=== PATIENT | female | born 1985 | race Caucasian/White ===

== ENCOUNTER 2018-08-23 18:03 | Outpatient (CLI) | payer MEDICAID, OTHER ==
[~2018-08-23] VITALS: Ht 167.6 cm; Wt 106.2 kg
[~2018-08-23 18:03] MED LIST: AZIT-12 PO; CYCL5TAB PO; FLAG500T PO; FLON1SPR NARES; GUAI100L6 PO; MACR100C43 PO; NAPR-837 PO; PRENTAB45 PO; SUDAFED; TRAZ50TA; ZOLO50TA
[2018-08-23] MEDS ORDERED: PRENTAB9 PO (18:29)
--- NOTE | 2018-08-23 20:46 | NUR ---
L&D Triage Note: S: 33yo at 32wks who present for labor check. Report contraction 3 ctx, but has subsided since traveling to hospital. +AFM, no vaginal bleeding or LOF. O: vss, AF cat 1 tracing, FHR 130s, moderate variability and spontaneous acceleration. Rare contractions gen: well appearing abd: gravid,nttp cx: 1/long/-3 FFN neg A/P: 33yo at 32wks, not in PTL Reassuring status -home with PTL precautions -FKCs -f/u at OB appt 08/25 Alberta Wood MD
== END 2018-08-23 20:50 | disposition home or self-care (01) ==
LOC: M LDO 18:03
PROVIDERS: ATTEND Obstetrics & Gynecology
DX: O47.03 False labor before 37 completed weeks of gestation, third trimester (principal); Z3A.32 32 weeks gestation of pregnancy

== ENCOUNTER 2018-09-14 22:11 | Outpatient (CLI) | payer MEDICAID ==
[~2018-09-14] VITALS: Ht 165.1 cm; Wt 106.5 kg
[2018-09-14 22:28] VITALS: BP 139/84
[2018-09-14 23:17] LABS: HEMATOCRIT 29.4 % (36.0-47.0); HEMOGLOBIN 10.5 g/dl (12.0-15.5); MEAN CORPUSCULAR HEMOGLOBIN 31.1 pg (27.0-33.0); MEAN CORPUSCULAR HGB CONC 35.7 g/dl (32.0-36.5); PLATELET COUNT, AUTOMATED 193 10^3/uL (150-450); RED BLOOD COUNT 3.38 10^6/uL (4.00-5.40); WHITE BLOOD COUNT 15.2 10^3/uL (4.0-10.0)
[2018-09-14 23:30] LABS: ALBUMIN 2.6 GM/DL (3.2-5.2); BILIRUBIN,DIRECT 0.1 MG/DL (0.0-0.2); BILIRUBIN,TOTAL 0.5 MG/DL (0.2-1.0); TOTAL PROTEIN 5.9 GM/DL (6.4-8.2)
[2018-09-14] MEDS ORDERED: PROMETHAZINE INJ 25 MG/ML VIAL (J2550) IV ONE (23:45)
[2018-09-14] MEDS ORDERED: BUTORPHANOL 2 MG/ML INJ (J0595) IV ONE (23:45)
[2018-09-14] MEDS ORDERED: FAMOTIDINE 20 MG TAB PO ONE (23:45)
[2018-09-15 00:04] VITALS: BP 110/77
[2018-09-15 01:29] VITALS: BP 121/59
[2018-09-15 02:41] VITALS: BP 128/75
[2018-09-15 03:55] VITALS: BP 109/57
--- NOTE | 2018-09-15 05:33 | IPN ---
DATE OF VISIT: 09/14/2018 Joselyn is a 33-year-old 4, para 1-1-1-2, 35-6/7 weeks at this moment arrival was at 35-5/7 weeks. She arrived to labor and delivery with a complaint of right upper quadrant pain that radiated down the right side of her abdomen, crossed her lower stomach and wrapped around her back. This pain started at approximately 2100. She does deny vaginal bleeding and leakage of fluid. The fetus has been active. The pain was reported to be a constant pain, unrelieved by position change. She does report that she ate chicken Jose for dinner at approximately 2000. Upon arrival to labor and delivery noted her care. HISTORY: Her care was initiated at a woman's perspective at 35 weeks as a transfer of care from [place] obstetric provider due to discharge from service of her spouse. Her care was complicated by history of delivery at 32 weeks. She was taking Imelda up until week 24 when she lost her insurance due to discharge from the [employer]. She also has a history of a hemorrhage. The plan is to have an active management of her third stage. OBSTETRIC HISTORY: 1. May 2006, 42 weeks gestation, 8 pounds female vaginal delivery uncomplicated. 2. June 2007, 32 weeks gestation, 3 pounds 6 ounces male complicated by hemorrhage vaginal delivery. 3. November 2013, an elective termination of . OBSTETRIC LABS: B+, antibody screen negative, rubella immune, VDRL nonreactive. Hep B surface antigen negative gonorrhea and chlamydia negative. Gestational diabetic screening is abnormal at 148. She has failed to do the three hour glucose tolerance test as she has been ordered by Dixon Ortiz, as well as a woman's perspective. GBS was just obtained today in the office for routine visit. PAST MEDICAL HISTORY: Abnormal Pap smear. PAST SURGICAL HISTORY: 1. Colon biopsy. 2. Breast augmentation. 3. Surgical dilatation and curettage (D and C). 4. History of blood transfusion. 5. History of anxiety. 6. Childhood varicella. FAMILY HISTORY: Diabetes, hypertension, kidney disease, bipolar and depression, skin cancer, Alzheimer's disease. SOCIAL HISTORY: The patient is single however the father of the baby is involved and at bedside. She is a nonsmoker. Denies alcohol and drug use. Denies history of any sexually transmitted infections. Denies history of abuse physical, sexual and emotional. ALLERGIES: No known drug allergies. CURRENT MEDICATIONS: - vitamins. PHYSICAL EXAMINATION: Upon arrival to labor and delivery she does appear somewhat uncomfortable. VITAL SIGNS: Temperature 98.2, pulse 82, respirations 20, blood pressure was 139/84. Upon arrival heart rate is 140 with moderate variability, positive accelerations, no decelerations. There is no pattern of regular contractions. STERILE VAGINAL EXAM: 2 cm dilated, 50% effaced, ballottable posterior and soft. No bloody show with the exam. LABORATORY DATA: Labs were ordered. Her white count is elevated at 15.2, hemoglobin 10.5, hematocrit 29.4. Her AST is normal at 15, ALT 11, alk phosphatase 98, amylase is 50 and lipase 217. She did undergo a gallbladder ultrasound that was nonspecific. It demonstrated a gallbladder that was partially contracted without shadowing gallstones, several mildly complex right renal cysts large in the mid pole of the right kidney. Suboptimal evaluation of the pancreas due to extensive bowel gas. No focal abnormality is seen in the head or body of the pancreas. ASSESSMENT: 1. Intrauterine at 35-6/7 weeks gestation at this time. 2. heart rate is category I, not in active labor. Likely right upper quadrant pain perhaps caused by gallstones or by the large amount of bowel gas noted on ultrasound. PLAN: The patient is being medicated for her abdominal discomfort and therapeutic rest. We will reassess after she has had some rest. Will continue to observe at this time.
[2018-09-15 06:18] VITALS: BP 105/67
--- NOTE | 2018-09-15 08:21 | REP ---
RIGHT UPPER QUADRANT ULTRASOUND: Real-time sonographic evaluation of right upper quadrant performed. Gallbladder is somewhat contracted, but no stones are seen. There is no evidence of significant gallbladder wall thickening. There is no pericholecystic fluid. There is no intrahepatic or extrahepatic biliary dilatation, common bile duct measuring 4 mm. Liver and pancreas demonstrate no gross mass. Right kidney demonstrates normal size 12.4 cm in length. There is no hydronephrosis. Multiple cysts are seen of the right kidney, largest in the mid aspect 1.4 cm in maximum diameter. This renal cyst is mildly complex with peripheral wall thickening. IMPRESSION: No gallstones, gallbladder wall thickening, pericholecystic fluid, or biliary dilatation. Right renal cysts, largest is 1.4 cm, demonstrating mildly complex characteristics with wall thickening. Followup recommended. Preliminary report provided by [facility] at the time of the exam. Electronically Signed by Demarcus Zavaleta MD 09/19/2018 01:40 P
== END 2018-09-15 08:12 | disposition home or self-care (01) ==
LOC: M LDO 22:11
PROVIDERS: ATTEND Advanced Practice Midwife
DX: O26.893 Other specified pregnancy related conditions, third trimester (principal); R10.11 Right upper quadrant pain; R10.30 Lower abdominal pain, unspecified; Z3A.35 35 weeks gestation of pregnancy
CPT/HCPCS: 36415; 59025; 76705; 80076; 82150; 83690; 85027; J0595

== ENCOUNTER → 2018-09-14 | Outpatient (CLI) | payer MEDICAID ==
[~2018-09-14] MED LIST changes: +PRENTAB9 PO
== END ==
LOC: M SMT 10:23
PROVIDERS: ATTEND Advanced Practice Midwife
DX: Z34.83 Encounter for supervision of other normal pregnancy, third trimester (principal); Z3A.00 Weeks of gestation of pregnancy not specified

== ENCOUNTER → 2018-09-14 | Outpatient (REF) | payer MEDICAID | LOC: M LAB REF 13:10 | PROVIDERS: ATTEND Advanced Practice Midwife | DX: Z34.83 Encounter for supervision of other normal pregnancy, third trimester (principal) ==

== ENCOUNTER → 2018-09-19 | Outpatient (CLI) | payer OTHER | LOC: M LAB 07:53 | PROVIDERS: ATTEND Advanced Practice Midwife | DX: Z34.83 Encounter for supervision of other normal pregnancy, third trimester (principal); Z3A.00 Weeks of gestation of pregnancy not specified ==

== ENCOUNTER 2018-09-30 10:25 | Emergency (ER) | payer OTHER ==
[~2018-09-30] VITALS: Ht 165.1 cm; Wt 107.3 kg
[2018-09-30] MEDS ORDERED: NS 1,000 ML IV ONE (11:45)
[2018-09-30] MEDS ORDERED: NORCO, ANEXSIA 5/325MG TABLET (HYDROcodone/ACETAMINOPHEN) PO ONE (11:45)
[2018-09-30 12:50] LABS: BASO % 0.4 % (0.0-1.0); EOS # 0.2 10^3/uL (0.0-0.50); EOS % 1.7 % (0.0-3.0); HEMATOCRIT 32.4 % (36.0-47.0); HEMOGLOBIN 11.5 g/dl (12.0-15.5); LYMPH # 1.9 10^3/uL (1.5-4.5); LYMPH % 17.9 % (24.0-44.0); MEAN CORPUSCULAR HEMOGLOBIN 30.5 pg (27.0-33.0); MEAN CORPUSCULAR HGB CONC 35.5 g/dl (32.0-36.5); MEAN CORPUSCULAR VOLUME 85.9 fl (80.0-96.0); MONO # 0.7 10^3/uL (0.0-0.8); MONO % 6.2 % (0.0-5.0); NEUTROPHILS # 7.8 10^3/uL (1.8-7.7); NEUTROPHILS % 72.8 % (36.0-66.0); PLATELET COUNT, AUTOMATED 218 10^3/uL (150-450); RED BLOOD COUNT 3.77 10^6/uL (4.00-5.40); WHITE BLOOD COUNT 10.8 10^3/uL (4.0-10.0)
[2018-09-30 13:13] LABS: BLOOD UREA NITROGEN 8 MG/DL (7-18); CALCIUM LEVEL 9.1 MG/DL (8.5-10.1); CARBON DIOXIDE LEVEL 22 MEQ/L (21-32); CHLORIDE LEVEL 110 MEQ/L (98-107); CREATININE FOR GFR 0.65 MG/DL (0.55-1.30); GLOMERULAR FILTRATION RATE > 60.0 (>60); GLUCOSE, FASTING 67 MG/DL (70-100); SODIUM LEVEL 140 MEQ/L (136-145)
[2018-09-30] MEDS ORDERED: AUGM500T34 PO (13:40)
--- NOTE | 2018-09-30 13:50 | REP ---
URINARY TRACT SONOGRAPHY: HISTORY: 39-week gravid female right flank pain. FINDINGS: A cephalic fetus is seen. heart rate is recorder 141 beats per minute. Urinary bladder is empty at the time of scanning. Renal cortical echogenicity pattern is normal and contours are smooth. There is no evidence of hydronephrosis on either side. Renal pyramids are somewhat echogenic bilaterally which may be a reflection of decreased hydration state. There is a 1.1 cm cyst in the upper pole of the right kidney. There are multiple small cysts in each kidney. An upper pole cyst on the right measures 1.1 cm. There is a mid pole cyst on the right measuring 1.5 cm. There is a 1.3 cm cyst in the lower pole. On the left, there are three cysts as well. The 1.2 cm cyst is seen in the upper pole and 1.4 cm cyst is seen in the lower pole. There is a 3.0 x 2.5 x 2.6 cm cysts projecting peripherally from the mid pole of the left kidney. Right renal cysts were observed on September 14, 2018 right upper quadrant sonography. IMPRESSION: Small bilateral renal cysts largest of which is on the left measuring 3.0 cm in greatest diameter. No hydronephrosis seen. Electronically Signed by Arnaldo Arechiga MD 09/30/2018 03:35 P
[2018-09-30 14:06] VITALS: BP 132/88
== END 2018-09-30 16:24 | disposition home or self-care (01) ==
LOC: M ED 10:25
DX: O23.43 Unspecified infection of urinary tract in pregnancy, third trimester (principal); Z3A.39 39 weeks gestation of pregnancy; Z87.442 Personal history of urinary calculi

== ENCOUNTER 2018-10-04 11:10 | Inpatient (IN) | payer OTHER ==
[2018-10-04] VITALS (12 sets, daily range): BP systolic 121–141; BP diastolic 67–87
[~2018-10-04] VITALS: Ht 165.1 cm; Wt 106.5 kg
[~2018-10-04 11:10] MED LIST changes: +AUGM500T34 PO
[2018-10-04] MEDS ORDERED: TUMS500C PO (11:42)
--- NOTE | 2018-10-04 12:15 | HPE ---
DATE OF ADMISSION: 10/04/2018 33-year-old G4, P1-1-1-2 female at 38 and 4/7 week gestation by 6 week ultrasound with estimated date of confinement (EDC) 10/14/2018. Plan is for labor induction due to gestational hypertension. Blood pressure now is 140/88, repeat was 150/96. She has irregular contractions. She denies vaginal bleeding. There is good movement. COURSE: The patient received care at 33 weeks gestation. She transferred from outside the area. course is unremarkable until elevated blood pressure on the day of admission. She did have pain of kidney stones and was seen in the emergency room on 09/30/2018. OBSTETRICAL HISTORY: 1. May 2006: 42-week vaginal delivery 8 pound female. 2. June 2008: 32-week vaginal delivery of 3 pound 6 ounce male (complicated by hemorrhage). 3. November 2013: Termination of . PAST MEDICAL HISTORY: 1. Kidney stones, status post renal stent placement. 2. Anxiety. PAST SURGICAL HISTORY: 1. Breast augmentation. 2. Dilation and curettage. 3. Cone biopsy. ALLERGIES: None. SOCIAL HISTORY: Father of the baby is involved. Patient denies cigarettes alcohol use or drug use during . FAMILY HISTORY: Noncontributory. PHYSICAL EXAMINATION: Blood pressure 144/88, weight 237. No apparent stress. Head/Neck exam: Normal. Lungs: Clear. Heart: Regular rate and rhythm. Abdomen: Nontender, gravid. heart tones category I. Sterile vaginal exam: 2-3 cm, 70%, -2, posterior soft vertex. Contractions irregular. Extremities: Nontender. LABS: Blood type B+, rubella immune. GBS negative on . ASSESSMENT: 33-year-old G4, P-1-1-1-2 female at 38 and 4/7 week gestation is admitted for induction with the indication for gestational hypertension. PLAN: Patient is admitted on 10/04/2018. The risks of induction were discussed.
[2018-10-04 12:52] LABS: BASO % 0.2 % (0.0-1.0); EOS # 0.2 10^3/uL (0.0-0.50); EOS % 1.6 % (0.0-3.0); HEMATOCRIT 30.6 % (36.0-47.0); HEMOGLOBIN 10.9 g/dl (12.0-15.5); LYMPH % 21.1 % (24.0-44.0); MEAN CORPUSCULAR HGB CONC 35.6 g/dl (32.0-36.5); MEAN CORPUSCULAR VOLUME 86.9 fl (80.0-96.0); MONO # 0.8 10^3/uL (0.0-0.8); MONO % 8.4 % (0.0-5.0); NEUTROPHILS # 6.4 10^3/uL (1.8-7.7); NEUTROPHILS % 67.5 % (36.0-66.0); PLATELET COUNT, AUTOMATED 217 10^3/uL (150-450); RED BLOOD COUNT 3.52 10^6/uL (4.00-5.40); WHITE BLOOD COUNT 9.5 10^3/uL (4.0-10.0)
[2018-10-04 13:17] LABS: ALT/SGPT 9 U/L (12-78); BILIRUBIN,TOTAL 0.4 MG/DL (0.2-1.0); CREATININE FOR GFR 0.63 MG/DL (0.55-1.30); GLOMERULAR FILTRATION RATE > 60.0 (>60); LDH LACTATE DEHYDROGENASE 195 U/L (84-246); URIC ACID 6.2 MG/DL (2.6-6.0)
[2018-10-04] MEDS: miSOPROStol 50 MCG 1/2 TAB (S0191) SL SCH ×3 (13:25→21:22)
[2018-10-05] VITALS (9 sets, daily range): BP systolic 120–139; BP diastolic 63–88
[2018-10-05] MEDS: LR 1,000 ML IV SCH ×2 (06:55→11:40)
[2018-10-05] MEDS ORDERED: OXYTOCIN DRIP 30 UNITS in APPROPRIATE DILUENT 1 EA IV SCH ×2 (07:00→20:20)
[2018-10-05] MEDS ORDERED: FENTANYL 2MCG/ML ROPIVACAINE 0.2% IN 0.9% NACL 100ML IVBAG As Ordered ONE (12:48)
[2018-10-05] MEDS ORDERED: EPIDURAL COMMENT XX SCH (13:45)
[2018-10-05] MEDS ORDERED: NALOXONE INJ 0.4 MG/1 ML VIAL (J2310) IV PRN (13:45)
[2018-10-05] MEDS ORDERED: FENTANYL/ROPIVACAINE/NACL BAG 100 ML EPIDURAL SCH (13:45)
[2018-10-05] MEDS ORDERED: diphenhydrAMINE INJ 50MG/ML VIAL (J1200) IV PRN (13:45)
[2018-10-05] MEDS ORDERED: EPIDURAL/PCA KEYS XX PRN (13:45)
[2018-10-05] MEDS ORDERED: LACTATED RINGER'S 1000 ML IV PRN (13:45)
[2018-10-05] MEDS ORDERED: ePHEDrine SULFATE 25 MG/5 ML(5MG/ML) SYRINGE IV PRN (13:45)
[2018-10-05] MEDS ORDERED: REFRIGERATOR IV KEYS XX PRN (13:45)
[2018-10-05] MEDS ORDERED: ONDANSETRON 4MG/2ML VIAL (J2405) IV PRN (13:45)
[2018-10-05] MEDS ORDERED: DOCUSATE SODIUM 100 MG CAP PO PRN (20:30)
[2018-10-05] MEDS ORDERED: OXYTOCIN INJ 10 UNITS/ML VIAL (J2590) IM ONE (20:30)
[2018-10-05] MEDS ORDERED: RHOGAM 300 MCG (1500 IU) INJ (J2790) IM SCH (20:30)
[2018-10-05] MEDS ORDERED: ACETAMINOPHEN TAB 650MG DOSE (2X325MG) PO PRN (20:30)
[2018-10-05] MEDS ORDERED: IBUPROFEN 600 MG TAB PO PRN (20:30)
[2018-10-05] MEDS ORDERED: DIBUCAINE 1% OINTMENT 30GM TOP PRN (20:30)
[2018-10-05] MEDS ORDERED: MEASLES,MUMPS,RUBELLA VACCINE INJ (MMR-II) (90707) SC SCH (20:30)
--- NOTE | 2018-10-05 20:37 | DN ---
DATE: 10/05/2018 Joselyn is a 33-year-old 4, para 2-1-1-3, now who is admitted to labor and delivery for induction of labor due to gestational hypertension. Misoprostol and intravenous (IV) Pitocin were used, and labor did ensue. She did utilize an epidural for her labor coping. She reached complete dilation at 1940. She pushed to a normal spontaneous vaginal delivery of a live male in occiput anterior (OA) position with restitution to right occiput transverse (ROT) position at 1945. There was a nuchal cord times one loose that was reduced manually at the time of delivery. The shoulders delivered spontaneously, and the corpus immediately followed. The male was placed on the maternal abdomen crying and active. His mouth and nares were bulb suctioned. The cord was clamped times two once pulsations ceased and cut by the father of the baby under my direction. Cord blood was obtained. Spontaneous expulsion of an intact placenta by Barnard mechanism with 3-vessel cord was at 195. Uterine hemostasis achieved with IV Pitocin rapid infusion, intramuscular (IM) Pitocin 10 units, and uterine fundal massage. Estimated blood loss 400 mL. Perineum and vagina inspected and noted to be intact. [place] male weighed 3800 grams, 8 pounds 6 ounces, scores 8 and 9. Mother is going to bottle-feed her son, and the family have named him Luis Antonio. At the close of delivery, lap counts and instrument counts were correct and verified.
[2018-10-06 05:26] VITALS: BP 117/73
[2018-10-06 08:02] VITALS: BP 121/63
[2018-10-06] MEDS ORDERED: ACET-683 PO (08:13)
[2018-10-06] MEDS: PRENATAL VITAMINS CHEWABLE TABLET PO SCH (08:19)
[2018-10-06] MEDS: IBUPROFEN 800 MG TAB PO PRN ×2 (08:21→18:06)
[2018-10-06] MEDS: ACETAMINOPHEN 500 MG TAB PO PRN ×2 (08:24→23:01)
[2018-10-06 18:00] VITALS: BP 142/73
[2018-10-07 06:06] VITALS: BP 118/70
[2018-10-07] MEDS: PRENATAL VITAMINS CHEWABLE TABLET PO SCH (07:30)
[2018-10-07] MEDS ORDERED: ADACEL/BOOSTRIX VACCINE (DIPHTH/PERTUSS/ACELL/TETANUS)0.5ML SYR (90715) IM ONE (09:00)
== END 2018-10-07 10:15 | disposition home or self-care (01) | DRG 560 ==
LOC: M LDI 11:10 → M OBS 10-05 22:01
PROVIDERS: ADMIT Specialist; ATTEND Advanced Practice Midwife
PROC: 3E0P7GC Introduction of Other Therapeutic Substance into Female Reproductive, Via Natural or Artificial Opening (ICD-10-PCS; 2018-10-04)
PROC: 10E0XZZ Delivery of Products of Conception, External Approach (ICD-10-PCS; principal; 2018-10-05)
DX: O13.4 Gestational [pregnancy-induced] hypertension without significant proteinuria, complicating childbirth (principal); O69.81X0 Labor and delivery complicated by cord around neck, without compression, not applicable or unspecified; Z3A.38 38 weeks gestation of pregnancy; Z37.0 Single live birth

== ENCOUNTER 2019-01-12 05:38 | Emergency (ER) | payer OTHER, SELFPAY ==
[~2019-01-12] VITALS: Ht 167.6 cm; Wt 99.6 kg
[~2019-01-12 05:38] MED LIST changes: +ACET-683 PO; +TUMS500C PO
[2019-01-12 05:39] VITALS: BP 145/82
[2019-01-12] MEDS ORDERED: BENZONATATE 100 MG CAP PO ONE (06:15)
[2019-01-12 07:24] LABS: INFLUENZA A AMPLIFICATION NEGATIVE (NEGATIVE); INFLUENZA B AMPLIFICATION NEGATIVE (NEGATIVE)
[2019-01-12] MEDS ORDERED: TESS100C PO (07:36)
[2019-01-12] MEDS ORDERED: AZIT-12 PO (07:36)
--- NOTE | 2019-01-12 08:00 | REP ---
Chest x-ray: Two views. History: Cough . Comparison study: No comparison exam. . Findings: The lungs are well inflated and free of infiltrate. The pleural angles are sharp. The heart size is normal. Pulmonary vasculature is not increased. No significant bony abnormality is seen. Impression: Negative chest x-ray. Electronically Signed by Arnaldo Arechiga MD 01/12/2019 07:51 A
== END 2019-01-12 07:42 | disposition home or self-care (01) ==
LOC: M ED 05:38
DX: J18.9 Pneumonia, unspecified organism (principal); Q61.3 Polycystic kidney, unspecified

== ENCOUNTER 2019-01-17 18:42 | Emergency (ER) | payer SELFPAY ==
[~2019-01-17] VITALS: Ht 167.6 cm; Wt 91.4 kg
[~2019-01-17 18:42] MED LIST changes: +TESS100C PO
[2019-01-17] MEDS ORDERED: ACETAMINOPHEN 325 MG TAB PO ONE (19:00)
[2019-01-17] MEDS ORDERED: NS 1,000 ML IV ONE (20:00)
[2019-01-17] MEDS ORDERED: ONDANSETRON 4MG/2ML VIAL (J2405) IV ONE (20:00)
[2019-01-17] MEDS ORDERED: KETOROLAC 30 MG/ML VIAL (J1885) IV ONE (20:00)
[2019-01-17 20:18] LABS: INFLUENZA A AMPLIFICATION NEGATIVE (NEGATIVE); INFLUENZA B AMPLIFICATION NEGATIVE (NEGATIVE)
[2019-01-17 20:20] LABS: BASO % 0.2 % (0.0-1.0); EOS # 0.1 10^3/uL (0.0-0.5); EOS % 0.7 % (0.0-3.0); HEMATOCRIT 37.9 % (36.0-47.0); HEMOGLOBIN 13.1 g/dl (12.0-15.5); LYMPH # 1.1 10^3/uL (1.5-5.0); LYMPH % 8.4 % (24.0-44.0); MEAN CORPUSCULAR HEMOGLOBIN 28.5 pg (27.0-33.0); MEAN CORPUSCULAR HGB CONC 34.6 g/dl (32.0-36.5); MEAN CORPUSCULAR VOLUME 82.4 fl (80.0-96.0); MONO # 0.7 10^3/uL (0.0-0.8); MONO % 5.7 % (0.0-5.0); NEUTROPHILS # 10.6 10^3/uL (1.5-8.5); NEUTROPHILS % 84.6 % (36.0-66.0); PLATELET COUNT, AUTOMATED 266 10^3/uL (150-450); WHITE BLOOD COUNT 12.6 10^3/uL (4.0-10.0)
[2019-01-17 20:41] LABS: MONO SCRN NEGATIVE (NEGATIVE)
--- NOTE | 2019-01-17 21:42 | REP ---
HISTORY: Cough and dyspnea. COMPARISON: 01/12/2019. FINDINGS: The superior mediastinal structures are midline. The cardiac silhouette is unremarkable in size, shape and position. The diaphragmatic surfaces of the lungs are regular and the costophrenic angles are clear. The pulmonary chakraborty are clear. The imaged osseous structures are intact. IMPRESSION: There is no acute cardiopulmonary disease. No change from the prior exam. Electronically Signed by Yosvany Castaneda DO 01/18/2019 02:13 P
[2019-01-17 23:20] VITALS: BP 124/88
== END 2019-01-17 23:26 | disposition home or self-care (01) ==
LOC: M ED 18:42
DX: J06.9 Acute upper respiratory infection, unspecified (principal); Q61.3 Polycystic kidney, unspecified; Z96.0 Presence of urogenital implants; Z87.891 Personal history of nicotine dependence
CPT/HCPCS: 36415; 71046; 80047; 81001; 84702; 85025; 86308; 87086; 87502; 96360; 96361; 96374; 96375; 99284; J1885; J2405